=== PATIENT | male | born 1980 | race Caucasian/White ===

== ENCOUNTER 2022-05-01 11:23 | Outpatient (CLI) | payer BC, SELFPAY ==
[2022-05-01 09:33] LABS: Cholesterol* 167 mg/dL (90-199); Glucose* 107 mg/dL (60-115); HDL Cholesterol* 61 mg/dL (>=40); LDL Cholesterol Calculated 91 mg/dL (<100); Triglycerides* 77 mg/dL (40-149)
== END 2022-05-01 11:24 | disposition home or self-care (01) ==
PROVIDERS: PCP Family Medicine; Visit Provider Family Medicine
DX: Z00.00 Encounter for general adult medical examination without abnormal findings (principal); Z13.6 Encounter for screening for cardiovascular disorders; Z13.1 Encounter for screening for diabetes mellitus
CPT/HCPCS: 80061; 82947

== ENCOUNTER 2022-05-11 13:45 | Outpatient (CLI) | payer BC, SELFPAY ==
[2022-05-11 15:15] VITALS: BP 172/70; PULSE 89; RESP 18
[2022-05-11] MEDS: PERFLUTREN LIPID MICROSPHERES 2 ML VIAL IV (15:18)
--- NOTE | 2022-05-11 20:11 | PM.ST ---
Stress Test Note Date Date Seen: 05/11/22 Date of test: 05/11/22 Providers Referring provider: Mckinley Whitt Primary care provider: Mckinley Whitt Stress test physician: Debra Lenz Stress Test Note Stress test ordered: Stress Echo Indication for test: Chest pain Stress [facility] Results discussion: Resting EKG: Sinus rhythm, 66 beats per minute Resting blood pressure: 134/64 Stress test: Patient was exercise using standard Alejandro protocol treadmill. Right away when he got up from a laying on the bed to stand exercise, he stated he had the chest symptoms. It went away quite quickly, 2 pre exercise EKGs were obtained. Initial 1 had significant artifact. No definitive ischemia noted in the 2nd 1. It went away quite quickly and thus decision was made to proceed with a stress test. Any followed standard Alejandro protocol. Near the end of exercise he did have frequent PVCs. No definitive ischemia noted. He exercised to 9 minute 2 seconds, achieving 10.5 Mets. He had a maximum heart rate of 154 beats per minute which was 102% of a calculated target heart rate of 150. He had a maximal blood pressure of 204 over 90 at 8 minutes 36 seconds into exercise giving him a rate pressure product of 31,212. Patient had no return of chest discomfort or symptoms during the remainder of the stress test. Impression: Subjectively negative, objectively negative stress test during the exercise portion of the stress test by EKG, note patient did have a component of chest pain with position change on standing, unclear what to make of that. Hypertensive response to exercise. Follow up suggested: Recommended patient await the echo images to couple this for a full formal diagnostic. Discharged from here in stable condition.
== END 2022-05-11 15:22 | disposition home or self-care (01) ==
LOC: STRESS 13:45
PROVIDERS: PCP Family Medicine; Visit Provider Family Medicine
DX: R07.9 Chest pain, unspecified (principal)
CPT/HCPCS: 93016; 93325; 93351; Q9957